=== PATIENT | female | born 2000 | race Caucasian/White ===

== ENCOUNTER 2020-03-01 01:29 | Emergency (ER) | payer OTHER ==
[~2020-03-01] VITALS: Ht 160 cm; Wt 63.6 kg
[2020-03-01 02:35] VITALS: BP 128/74; PULSE 67; TEMP 98.4
== END 2020-03-01 02:44 | disposition home or self-care (01) ==
LOC: COL.ER 01:29
DX: R06.02 Shortness of breath (principal); U07.1 COVID-19; R05 Cough; M79.10 Myalgia, unspecified site; Z79.3 Long term (current) use of hormonal contraceptives

== ENCOUNTER 2023-07-12 22:19 | Emergency (ER) | payer BC ==
[~2023-07-12] VITALS: Ht 160 cm; Wt 68.2 kg
[2023-07-12 23:22] LABS: BASO % 0.3 % (0.0-2.0); GRAN # 10.6 K/mm3 (1.4-6.5); HEMATOCRIT 42.2 % (37.0-47.0); HEMOGLOBIN 14.3 g/dl (12.5-16.0); LYMPH # 0.7 K/mm3 (1.2-3.4); LYMPH % 5.9 % (20.0-51.0); MEAN CELL VOLUME 88 fl (80.0-100.0); MEAN CORPUSCULAR HEMOGLOBIN 30 pg (27-31); MEAN CORPUSCULAR HGB CONC 34 g/dl (33.0-37.0); MONO # 0.8 K/mm3 (0.1-0.6); MONO % 6.3 % (1.7-9.3); PLATELET COUNT 335 K/mm3 (130-400); RED BLOOD COUNT 4.81 M/mm3 (4.10-5.30); REDCELL DISTRIBUTION WIDTH-CV 12.4 % (11.5-14.5)
[2023-07-12 23:31] LABS: INR 1.4 (0.8-3.0); PROTHROMBIN TIME 15.2 SECONDS (9.7-12.8)
[2023-07-12 23:34] LABS: PARTIAL THROMBOPLASTIN TIME 36.4 SECONDS (26.0-37.0)
[2023-07-12 23:43] LABS: ALBUMIN 3.9 gm/dL (3.5-5.0); CALCIUM 9.1 mg/dL (8.4-10.2); CREATININE, serum 0.86 mg/dL (0.57-1.11); POTASSIUM 3.9 mmol/L (3.5-4.5); TOTAL PROTEIN 7.6 gm/dL (6.2-8.1)
[2023-07-12 23:52] LABS: BILIRUBIN,TOTAL 0.9 mg/dL (0.2-1.2)
[2023-07-13 00:11] LABS: COLLECTION METHOD CLEAN CATCH
[2023-07-13 00:23] VITALS: BP 115/78
[2023-07-13 00:24] VITALS: TEMP 98.8
[2023-07-13 00:30] LABS: URINE APPEARANCE Clear (CLEAR/HAZY); URINE COLOR Yellow (YELLOW)
[2023-07-13 00:31] LABS: PH 5.5 (5.0-8.5); SQUAMOUS EPITHELIAL 0-2 /hpf (0-10); URINE BACTERIA Rare /hpf (NONE SEEN); URINE BLOOD TRACE-INTACT (NEGATIVE); URINE GLUCOSE Negative (NEGATIVE); URINE KETONE 3+ (NEGATIVE); URINE NITRATE Negative (NEGATIVE); URINE PROTEIN(semi-quant) Negative (NEGATIVE); URINE RBC 0-2 /hpf (0-2); URINE UROBILINOGEN 0.2 E.U/dL (0.2-1.0)
[2023-07-13 01:02] VITALS: PULSE 96
[2023-07-13] MEDS ORDERED: DOXYCYCLINE 10100 MG PO (11:35)
== END 2023-07-13 01:10 | disposition home or self-care (01) ==
LOC: COL.ER 22:19
PROVIDERS: Emergency Medicine
DX: B34.9 Viral infection, unspecified (principal); R50.9 Fever, unspecified; R51.9 Headache, unspecified; R09.89 Other specified symptoms and signs involving the circulatory and respiratory systems
CPT/HCPCS: J0696; J1885; J7030